=== PATIENT | female | born 1955 | race Caucasian/White ===

== ENCOUNTER 2018-05-11 20:03 | Emergency (ER) | payer BC ==
--- NOTE | 2018-05-11 20:20 | Emergency Department Record ---
History of Present Illness - General Chief Complaint: Hypertension Stated Complaint: HIGH BP Time Seen by Provider: 05/11/18 20:16 Source: Patient Mode of Arrival: Ambulatory Limitations: No limitations - History of Present Illness Initial Comments: 63 yo female presents to ED for evaluation of elevated blood pressure this evening resulting in headache symptoms. Patient reports that she previously took Lisinopril daily however her PCP stopped the medication some time ago as it was affecting her "electrolytes". Patient denies chest pain, numbness, tingling, or extremity weakness symptoms. Patient reports "I'm just nervous about how high it is". Complaint: Other Onset/Timin -: Days(s) Timing: Gradual onset History of Same: Yes History of Trauma: No Improves With: Medication Associated Symptoms: Denies other symptoms - Ale Coma Scale Eye Response: (4) Open spontaneously Motor Response: (6) Obeys commands Verbal Response: (5) Oriented Ale Total: 15 - Related Data Home Medications Medication Instructions Recorded Confirmed Last Taken Butalb/Acetaminophen/Caffeine 1 each PO DAILY 05/11/18 05/11/18 Unknown [Fioricet] Cholecalciferol (Vitamin D3) 5,000 unit PO DAILY 05/11/18 05/11/18 Unknown [Vitamin D3] Diazepam 10 mg PO DAILY PRN 05/11/18 05/11/18 Unknown Zolpidem Tartrate [Ambien Cr] 12.5 mg PO DAILY 05/11/18 05/11/18 Unknown Previous Rx's Medication Instructions Recorded Metoprolol Tartrate [Lopressor] 25 mg PO Q12H #14 tab 05/11/18 Allergies Allergy/AdvReac Type Severity Reaction Status Date / Time No Known Drug Allergies Allergy Verified 05/11/18 20:15 Travel Screening - Travel/Exposure Within Last 30 Days Have you traveled within the last 30 days?: No - Travel Symptoms Symptom Screening: Headache Review of Systems Constitutional: Denies: Chills, Fever, Malaise, Night sweats Eyes: Denies: Eye discharge, Eye pain ENT: Denies: Congestion, Ear pain, Epistaxis Respiratory: Denies: Cough, Dyspnea Cardiovascular: Denies: Chest pain, Dyspnea on exertion Endocrine: Denies: Fatigue, Heat or cold intolerance Gastrointestinal: Denies: Abdominal pain, Nausea, Vomiting Genitourinary: Denies: Incontinence, Retention Musculoskeletal: Denies: Arthralgia, Back pain Skin: Denies: Bruising, Change in color Neurological: Reports: Headache. Denies: Abnormal gait, Confusion, Seizure Psychiatric: Denies: Anxiety Hematological/Lymphatic: Denies: Anemia, Blood Clots Physical Exam - General General Appearance: Alert, Oriented x3, Cooperative, No acute distress, Other ( smiling, well appearing, mildly anxious on examination) Limitations: No limitations - Head Head exam: Atraumatic, Normocephalic, Normal inspection Head exam detail: negative: Abrasion, Contusion, Llanes's sign, General tenderness, Hematoma, Laceration - Eye Eye exam: Normal appearance. negative: Conjunctival injection, Periorbital swelling, Periorbital tenderness, Scleral icterus - ENT Ear exam: negative: Auricular hematoma, Auricular trauma Nasal Exam: negative: Active bleeding, Discharge, Dried blood, Foreign body Mouth exam: negative: Drooling, Laceration, Muffled voice, Tongue elevation - Neck Neck exam: Normal inspection. negative: Meningismus, Tenderness - Respiratory Respiratory exam: Normal lung sounds bilaterally. negative: Rales, Respiratory distress, Rhonchi, Stridor - Cardiovascular Cardiovascular Exam: Regular rate, Normal rhythm, Normal heart sounds - GI/Abdominal GI/Abdominal exam: Soft. negative: Rebound, Rigid, Tenderness - Rectal Rectal exam: Deferred - exam: Deferred - Extremities Extremities exam: Normal inspection. negative: Pedal edema, Tenderness - Back Back exam: Denies: CVA tenderness (R), CVA tenderness (L) - Neurological Neurological exam: Alert, Normal gait, Oriented X3 - Psychiatric Psychiatric exam: Anxious - Skin Skin exam: Normal color. negative: Abrasion Type of lesion: negative: abrasion Course Vital Signs 05/11/18 20:11 Pulse Rate 68 Respiratory 16 Rate Blood Pressure 197/103 Pulse Ox 99 - Reevaluation(s) Reevaluation #1: 05/11/18 20:46 BMP was reviewed and renal function appears normal. Reevaluation #2: 05/11/18 21:03 BP was reassessed, 170/93. Patient remains asymptomatic at this time with improvement in her BP symptoms. Patient is very concerned about untreated BP, following a long discussion with the patient, will prescribe Lopressor 25 mg BID for 1 week until she is able to follow-up with her PCP for further evaluation. Patient agrees with the plan of care as discussed. Medical Decision Making - Lab Data Result diagrams: 05/11/18 20:30 Disposition Disposition: Discharge Clinical Impression: Elevated blood pressure reading Disposition: Home, Self-Care Condition: (2) Stable Instructions: Hypertension (ED) Additional Instructions: Return to ED if your symptoms worsen or if you have any concerns. Follow-up with your family doctor in 1-3 days as directed. Lopressor as directed. Prescriptions: Metoprolol Tartrate [Lopressor] 25 mg PO Q12H #14 tab Forms: Patient Portal Access Time of Disposition: 21:05 Quality - Quality Measures Quality Measures: N/A - Blood Pressure Screening Does Patient Have Any of the Following: No Blood Pressure Classification: Hypertensive Reading Systolic Measurement: 197 Diastolic Measurement: 103 Screening for High Blood Pressure: < First Hypertensive BP, F/U Documented > [ [id number]] First Hypertensive Follow-up Interventions: Referral to alternative/primary care provider.
[2018-05-11 20:42] LABS: BLOOD UREA NITROGEN 12 mg/dL (8-23); CREATININE 0.8 mg/dL (0.5-0.9); EST GLOMERULAR FILTRATION RATE > 60 mL/min
[2018-05-11 20:45] LABS: GLUCOSE,RANDOM 106 mg/dL (74-109)
== END 2018-05-11 21:15 | disposition home or self-care (01) ==
LOC: ER 20:03
DX: I10 Essential (primary) hypertension (principal); R51 Headache
CPT/HCPCS: 80048; 99283